=== PATIENT | male | born 1950 | race Two or more races ===

== ENCOUNTER 2024-12-04 21:10 | Emergency (ER) | payer MEDICARE, MEDICAID, SELFPAY ==
[2024-12-04 21:14] VITALS: PULSE 78; RESP 18; O2SAT 98; BMI 27.2
[2024-12-04 21:22] VITALS: BP 173/82; PULSE 82; RESP 18; TEMP 36.8; O2SAT 97
--- NOTE | 2024-12-04 21:27 | PC.NURSE ---
patient brought in by ambulance for left arm shunt bleed. per ems by the time they got there and bandaged it the bleeding looked controlled. Patient states he ripped off the bandage they put after dialysis as instructed but for some reason he bled this time. patient laying comfortably with call light at reach no other complaints at the moment.
--- NOTE | 2024-12-04 22:36 | PD.EDSKIN ---
ED Skin Abcess FB-RME/HPI General Chief complaint: Skin/Abscess/Foreign Body Stated complaint: DIALYSIS SHUNT BLEEDING Arrival date/time: 12/04/24 21:10 RME / HPI RME / HPI narrative: Dr. Ureña?s Main ED Evaluation: 74yo male with a history of HTN, DM, renal disease on HD presents to the ED for a chief complaint of bleeding from his fistula. Patient states he finished his dialysis session at 1600, reporting his fistula started bleeding after, so he was sent over for evaluation. He denies any N/V, dizziness, lightheadedness or any other associated symptoms. Related Data Home Medications ?Medication ?Instructions ?Recorded ?Confirmed atorvastatin 20 mg tablet 20 mg PO QDAY 02/22/23 01/09/24 insulin glargine 100 unit/mL (3 28 unit subcut DAILY 02/22/23 01/09/24 mL) subcutaneous pen (Basaglar KwikPen U-100 Insulin) cilostazol 50 mg tablet 50 mg PO DAILY 01/08/24 01/09/24 clonidine HCl 0.2 mg tablet 0.2 mg PO BID 01/08/24 01/09/24 finasteride 5 mg tablet 5 mg PO QDAY 01/08/24 01/09/24 hydralazine 10 mg tablet 10 mg PO TID 01/08/24 01/09/24 metoprolol succinate 50 mg 50 mg PO BID 01/08/24 01/09/24 tablet,extended release 24 hr sacubitril 24 mg-valsartan 26 mg 1 tab PO BID 01/08/24 01/09/24 tablet (Entresto) Previous Rx's ?Medication ?Instructions ?Recorded aspirin 81 mg tablet,delayed 81 mg PO QDAY #30 tabs 02/13/22 release (Almaz Low Dose Aspirin) spironolactone 25 mg tablet 25 mg PO BID #60 tabs 02/23/23 amlodipine 5 mg tablet 10 mg (2 x 5 mg) PO QDAY 1 month 02/26/23 #60 tabs levofloxacin 750 mg tablet 750 mg PO Q24H #7 tabs 06/16/24 Allergies Allergy/AdvReac Type Severity Reaction Status Date / Time metformin Allergy Severe Anaphylaxis Verified 01/09/24 06:38 Review of Systems Review of Systems Systems Reviewed: All systems reviewed, normal except as documented Narrative Review of Systems: Gen: No fever, no chills, no weight loss EYES: No discharge, no visual changes, no pain HEENT: No ear pain, no congestion, no sore throat PULM: No shortness of breath, no cough, no congestion CV: No chest pain, no dyspnea on exertion, no palpitations GI: No nausea, no vomiting, no diarrhea, no pain, no constipation : No frequency, no urgency, no dysuria Musc/skel: No joint pain, no back pain Skin: No rash. Warm and dry. + AV fistula bleeding Psyc: No hallucinations, no depression Heme/Lymph: No easy bleeding or bruising tendencies Neuro: No weakness, no headache Past Medical History Past Medical History NEUROLOGIC: Negative Neurological Disorders, Cerebrovascular Accident, Transient Ischemic Attacks (TIA), Dementia, Alzheimer's Disease, Parkinson's Disease, Brain Tumor, Meningitis, Seizures, Epilepsy, Multiple Sclerosis, Cerebral Palsy, Amyotrophic Lateral Sclerosis (ALS/Leena Gehrig's), Guillain-[place] Syndrome, Spina Bifida, Paralysis, Peripheral Neuropathy, Ojeda's Palsy, Subdural Hematoma, Migraine, Head Trauma, Spinal Cord Injury or Traumatic Brain Injury CARDIAC: Positive Cardiac Disorders, Hypercholesterolemia, Congestive Heart Failure and Hypertension; Negative Myocardial Infarction, Cardiac Arrhythmia, Atrial Fibrillation, Angina, Heart Murmur, Coronary Artery Disease, Atherosclerotic Heart Disease, Peripheral Vascular Disease, Aneurysm, Congenital Heart Disease, Valvular Heart Disease, Rheumatic Fever, Cardiomyopathy, Edema, Pericarditis, Cellulitis, Deep Vein Thrombosis, Hypotension or Varicose Veins RESPIRATORY: Negative Chronic Obstructive Pulmonary Disease (COPD), Asthma, Bronchitis, Emphysema, Pneumonia, Pulmonary Fibrosis, Cystic Fibrosis, Tuberculosis, Pulmonary Embolism, Pulmonary Edema or Sleep Apnea GASTROINTESTINAL: Negative Gastrointestinal Disorders, Hepatitis, Cirrhosis, Pancreatitis, Celiac Disease, Gall Bladder Disease, Gastrointestinal Bleed, Esophageal Varices, Sousa's Esophagus, Colitis, Ulcerative Colitis, Diverticulitis, Diverticulosis, Ulcer, Colorectal Cancer, Irritable Bowel, Crohn's Disease, Obstructive Bowel, Hiatal Hernia, Hemorrhoids, Gastroesophageal Reflux Disease or Obesity GENITOURINARY: Positive Genitourinary Disorders, Renal Disease, Dialysis and Benign Prostatic Hyperplasia; Negative Kidney Stones, Polycystic Kidney Disease, Neurogenic Bladder or Prostate Cancer REPRODUCTIVE: Negative Breast Cancer, Fibroids or Testicular Cancer MUSCULOSKELETAL: Positive Musculoskeletal Disorders, Arthritis and Gout; Negative Muscular Dystrophy, Myasthenia Gravis, Marfan's Syndrome, Bone Cancer, Rheumatoid Arthritis, Osteoporosis, Degenerative Disk Disease, Scoliosis, Carpal Tunnel Syndrome, Fibromyalgia, Fractures, Degenerative Joint Disease or Osteomyelitis ENT: Positive Cataracts; Negative Glaucoma, Blind, Retinal Detachment, Macular Degeneration, Ear Infection, Deafness, Head Trauma or Eye Prosthesis ENDOCRINE: Positive Endocrine Disorders and Diabetes Mellitus Type 2; Negative Diabetes Mellitus Type 1, Hypoglycemia, [place]'s Syndrome, Feliz's Disease, Hyperthyroidism, Hypothyroidism, Parathyroid Disease, Pituitary Disease, Systemic Lupus Erythematosus, Syndrome of Inappropriate Antidiuretic Hormone (SIADH), Adrenal Disease or Graves' Disease HEMATOLOGIC: Negative Blood Disorders, Anemia, Leukemia, Hemophilia, Thalassemia, Sickle Cell Disease or Clotting Problems PSYCHO/SOCIAL: Positive Depression and Anxiety; Negative Psychiatric Problems, Schizophrenia, Recreational Drug Use, Bipolar Disorder, Behavior Problems, Self-Mutilation, Attention Deficit Disorder, Attention Deficit Hyperactivity Disorder, Depression, Post Traumatic Stress Disorder or Eating Disorder OTHER HISTORY: Positive Hospitalization and Falls; Negative Autoimmune Disease, Down Syndrome, Autism, Developmental Delay, Shingles, Blood Transfusions, Blood Transfusion Reaction, Anesthesia Reactions, Organ Transplant, Chemotherapy, Radiation Therapy, Hyperbaric Therapy, MRSA, VRSA, Vancomycin-Resistant Enterococci, Human Immunodeficiency Virus (HIV), Chicken Pox, Measles, Mumps, Rubella (Burkinan Measles), Pertussis, Clostridium Difficile, Cancer, Breast Cancer, Cervical Cancer, Colorectal Cancer, Lung Cancer, Ovarian Cancer, Prostate Cancer or Testicular Cancer Family History FAMILY HISTORY: Positive Family Cancer; Negative Family Psychiatric Problems, Family Respiratory Disorders, Family Cardiac Disorders, Family Gastrointestinal Problems, Family Surgery or Family Anesthesia Reaction Surgical History SURGICAL: Positive Angiogram and Open Reduction Internal Fixation; Negative Cardiac Surgery, Open Heart Surgery, Coronary Artery Bypass Graft, Valve Replacement, Vascular Surgery, Coronary Stent, Cardiac Catheterization, Pacemaker, Auto Implanted Cardiovert Defib, Carotid Endarterectomy, Endocrine Surgery, Thyroidectomy, Ear Surgery, Tympanostomy Tube, Eye Surgery, Nose Surgery, Oral Surgery, Tonsillectomy, Adenoidectomy, Cochlear Implant, Corneal Transplant, Throat Surgery, Abdominal Surgery, Tracheostomy, Gastric Bypass Surgery, Gastrostomy, Bowel Surgery, Nephrectomy, Transurethral Resection, Joint Replacement, Amputation, Arthroscopy, Neurologic Surgery, Brain Shunt, Vasectomy or Organ Transplant Social History SMOKING STATUS: Never smoker SECOND HAND EXPOSURE: No ED Exam Narrative Physical exam: GENERAL APPEARANCE: alert and oriented x 4, well-developed, well-nourished, no acute distress VITALS: All vitals were reviewed and the pulse ox is 97% on room air, which is normal according to my interpretation. HEENT: normocephalic, atraumatic NECK: supple LUNGS: no respiratory distress, normal effort HEART: good peripheral perfusion ABDOMEN: non distended EXTREMITIES: atraumatic; left AV fistula with a good palpable thrill NEUROLOGIC: awake; alert and oriented x4; cranial nerves II-XII grossly intact PSYCHIATRIC: appropriate mood and affect SKIN: warm, dry, normal color; no rashes Course Course Course Narrative: Patient does not have any clinical signs of hypovolemia such as tachycardia, tachypnea, pallor or active bleeding. Patient is stable to be discharged home. Quality Measures none Vital Signs Vital signs: Vital Signs Temperature 98.2 F 12/04/24 21:22 Pulse Rate 82 12/04/24 21:22 Respiratory Rate 18 12/04/24 21:22 Blood Pressure 173/82 H 12/04/24 21:22 Pulse Oximetry (%) 97 12/04/24 21:22 Oxygen Delivery Method Room Air 12/04/24 21:22 Skin / Abscess / Foreign Body MDM Narrative MDM Narrative:: Scribe Attestation: 12/04/24 - Sanaz Verma am scribing for and in the presence of Dr. Ureña. Patient data External records reviewed:: [facility] previous records (Per chart review, patient was seen here on 06/16/24 for a fever.) Clinical information provided by:: patient and family Social determinants that could affect healthcare access:: none Patient has the following chronic illnesses:: CHF, HTN, DM, renal disease on HD How is presenting disease/condition affected by chronic disease/condition?: caused by Evaluation data The following diagnostics were reviewed and interpreted by me:: other (specify) (none) Lab and/or radiology exams considered but not ordered:: none Interpretation Summary: none Medications / Prescriptions Medications or Prescriptions considered but not ordered:: none Medication administrations:: none Consultations Consultation(s) initiated? (list below): No Diagnosis Skin/Abscess Differential Diagnosis: other (hypovolemia, hemorrhage, LUE abscess, AV fistula thrombus) Most likely diagnosis given after review of the tests above:: see below Admission Indicated Admission indicated?: not indicated Admission Request Was there a request for admission?: No Disposition Plan Disposition Plan: Discharge Discharge Attestation Discharge Attestation: The patient and all family members were given an opportunity to ask questions and understood the discharge instructions. Discharge instructions specifically effects, indications for sooner follow up or return to the emergency department, and the expected course of current diagnosis. Patient condition: Stable Discharge Plan Plan Patient Disposition: HOME (Self Care) Disposition Comment: Stable for discharge Patient condition on transfer: Stable Prescriptions/Referrals Prescriptions/Med Rec: No Action aspirin [Almaz Low Dose Aspirin] 81 mg Tablet,Delayed Release (Dr/Ec) 81 mg PO QDAY Qty: 30 0RF hydralazine 10 mg Tablet 10 mg PO TID metoprolol succinate 50 mg Tablet Extended Release 24 Hr 50 mg PO BID clonidine HCl 0.2 mg Tablet 0.2 mg PO BID finasteride 5 mg Tablet 5 mg PO QDAY Entresto 24-26 mg Tablet 1 tab PO BID cilostazol 50 mg tablet 50 mg PO DAILY Patient Comments: TOME PRANAV TABLETA DOS VECES AL D A atorvastatin 20 mg tablet 20 mg PO QDAY Patient Comments: TOME PRANAV TABLETA POR VIA ORAL AL ACOSTARSE FOR CHOLESTEROL insulin glargine [Basaglar KwikPen U-100 Insulin] 100 unit/mL (3 mL) insulin pen 28 unit SUBCUT DAILY Patient Comments: INJECT 40 UNIDADES BAJO LA PIEL TODOS LOS D PARA DIABETES spironolactone 25 mg tablet 25 mg PO BID Qty: 60 2RF amlodipine 5 mg Tablet 10 mg PO QDAY 30 Days Qty: 60 2RF levofloxacin 750 mg tablet 750 mg PO Q24H Qty: 7 0RF Referrals: Stephanie Chacko PA-C [Primary Care Provider] - In 1 week Problem List Clinical Impression: Hemorrhage of arteriovenous fistula Patient/Caregiver Discharge Instructions Discharge Activity: activity as tolerated Education Materials: First Aid: Bleeding, ED Hemodialysis Access Bleeding Additional Instructions: Please return to the emergency department for any worsening or any further medical problems Otherwise you should follow-up with your primary care doctor within the next several days as well as your toilet attendant within the next several days. If you have any further bleeding please do not hesitate to come back to the ER right away Print Language: Surinamese Stand Alone Forms: [employer] Info., Patient Portal Info Letter
[2024-12-04 22:50] VITALS: BP 189/85; PULSE 84; RESP 16; TEMP 36.8; O2SAT 96
== END 2024-12-04 22:50 | disposition home or self-care (01) ==
PROVIDERS: Emergency Provider Emergency Medicine; PCP Physician Assistant
DX: T82.838A Hemorrhage due to vascular prosthetic devices, implants and grafts, initial encounter (principal); Y82.8 Other medical devices associated with adverse incidents
CPT/HCPCS: 99283

== ENCOUNTER → 2024-12-24 | Outpatient (CLI) | payer MEDICARE, MEDICAID, SELFPAY ==
[2024-12-24 11:40] LABS: Basophils % (Auto) 0 % (0-2.5); Eosinophils # (Auto) 0.2 Thou/mm3 (0.0-0.5); Eosinophils % (Auto) 3 % (0-10); Hematocrit 27.7 % (41.0-53.0); Hemoglobin 9.3 g/dL (13.5-16.0); Immature Granulocytes % (Auto) 0 % (0-0); Immature Granulocytes Auto 0.02 Thou/mm3 (0.00-0.00); Lymphocytes # (Auto) 1.3 Thou/mm3 (1.0-4.8); Lymphocytes % (Auto) 18 % (10-50); Mean Corpuscular HGB Conc 33.6 g/dl (31.0-37.0); Mean Corpuscular Hemoglobin 30.2 pg (25.0-35.0); Mean Corpuscular Volume 90 fL (80-100); Monocytes # (Auto) 0.9 Thou/mm3 (0.0-0.8); Monocytes % (Auto) 12 % (0-12); Neutrophils # (Auto) 4.6 Thou/mm3 (1.8-7.7); Neutrophils % (Auto) 66 % (37-80); Nucleated Red Blood Cell % 0 /100 WBC (0); Platelet Count 152 Thou/mm3 (140-440); RDW Standard Deviation 43.6 fL (35.1-43.9); Red Blood Count 3.08 Miln/mm3 (4.50-5.90)
[2024-12-24 11:48] LABS: Anion Gap 8 (7-16); BUN/Creatinine Ratio 12 Ratio (12-20); Blood Urea Nitrogen 37 mg/dL (9-23); Carbon Dioxide 29.9 mMol/L (20.0-31.0); Chloride 100 mMol/L (98-107); Creatinine (Component) 3.2 mg/dL (0.6-1.3); Glucose 148 mg/dL (74-106); Osmolality,Calculated 287 (275-295); Partial Thromboplastin Time 25.6 Seconds (22.0-36.0); Potassium 5.2 mMol/L (3.4-5.1); Prothrombin Time 11.1 Seconds (9.0-12.2); Sodium 138 mMol/L (136-145); eGFR 19 See Note
== END | disposition home or self-care (01) ==
PROVIDERS: PCP Physician Assistant; Referring Provider Internal Medicine; Visit Provider Internal Medicine
DX: I25.10 Atherosclerotic heart disease of native coronary artery without angina pectoris (principal); I48.91 Unspecified atrial fibrillation
CPT/HCPCS: 36415; 80048; 85025; 85610; 85730

== ENCOUNTER 2024-12-27 16:13 | Emergency (ER) | payer MEDICARE, MEDICAID, SELFPAY ==
[2024-12-27 16:49] VITALS: BP 166/72; PULSE 93; RESP 18; TEMP 37.1; O2SAT 97
[2024-12-27 16:50] VITALS: BMI 26.9
--- NOTE | 2024-12-27 16:57 | XR_ITS ---
Examination: PA lateral chest 2 views Technique one AP lateral chest 2 views Exam date and time: December 27, 2024 1710 hrs. Indications: Coughing beginning 2 days ago. Findings: Early bibasilar pneumonia. Minor prominence left ventricle No pulmonary edema Impression: Early bibasilar pneumonia
--- NOTE | 2024-12-27 16:58 | PD.EDRME ---
Rapid Medical Screening Exam [facility] Arrival date/time: 12/27/24 16:13 74-year-old male with a history of hyperlipidemia, hypertension, type 2 diabetes presents to the emergency room with a chief complaint of coughing and intermittent fevers x 3 days. I have greeted and performed a focused initial assessment of this patient. A comprehensive ED assessment and evaluation of the patient, analysis of all test results, and completion of the medical decision making process will be conducted by additional ED providers. Chief Complaint: Flu Like Symptoms Vital signs: Vital Signs Temperature 98.7 F 12/27/24 16:49 Pulse Rate 93 12/27/24 16:49 Respiratory Rate 18 12/27/24 16:49 Blood Pressure 166/72 H 12/27/24 16:49 Pulse Oximetry (%) 97 12/27/24 16:49 Oxygen Delivery Method Room Air 12/27/24 16:49 Vital signs reviewed by provider: Yes
[2024-12-27 19:05] VITALS: BP 214/94; PULSE 80; RESP 18; TEMP 36.8; O2SAT 98
[2024-12-27 19:32] VITALS: BP 199/89; PULSE 88; RESP 17; TEMP 37.9; O2SAT 98
--- NOTE | 2024-12-27 19:36 | EDNOTE_ITS ---
<Statement entered by Ria Worley MD - 12/28/24 05:26> As co-signing physician, I was present and available for consult prn. I concur with the plan and care as documented by the midlevel provider. Upper Respiratory Inf. RME/HPI General Chief Complaint: Flu Like Symptoms Stated Complaint: COUGH AND FEVER X 2 DAYS; NO MEDS TAKEN Time Seen by Provider: 12/27/24 18:21 Source: patient Arrival date/time: 12/27/24 16:13 74-year-old male with past medical history of hyperlipidemia, hypertension, and diabetes presents emergency department complaining of cough and fevers that have been ongoing for 3 days. Patient denies any other associated symptoms. Mode of arrival: ambulatory Limitations: no limitations RME / HPI RME / HPI Narrative: 12/27/24 16:13 74-year-old male with a history of hyperlipidemia, hypertension, type 2 diabetes presents to the emergency room with a chief complaint of coughing and intermittent fevers x 3 days. I have greeted and performed a focused initial assessment of this patient. A comprehensive ED assessment and evaluation of the patient, analysis of all test results, and completion of the medical decision making process will be conducted by additional ED providers. Related Data Home Medications ?Medication ?Instructions ?Recorded ?Confirmed atorvastatin 20 mg tablet 20 mg PO QDAY 02/22/2301/08 insulin glargine 100 unit/mL (3 28 unit subcut DAILY 0 02/22/23 01/09/24 mL) subcutaneous pen (Basaglar KwikPen U-100 Insulin) cilostazol 50 mg tablet 50 mg PO DAILY 01/08/2405/27 clonidine HCl 0.2 mg tablet 0.2 mg PO BID 01/08/2405/27 finasteride 5 mg tablet 5 mg PO QDAY 01/08/24 hydralazine 10 mg tablet 10 mg PO TID 01/08/24 metoprolol succinate 50 mg 50 mg PO BID 01/08/2401/08 tablet,extended release 24 hr sacubitril 24 mg-valsartan 26 mg 1 tab PO BID 01/08/24 01/09/24 tablet (Entresto) Previous Rx's ?Medication ?Instructions ?Recorded aspirin 81 mg tablet,delayed 81 mg PO QDAY #30 tabs release (Almaz Low Dose Aspirin) spironolactone 25 mg tablet 25 mg PO BID #60 tabs 02/03 12/27 amlodipine 5 mg tablet 10 mg (2 x 5 mg) PO QDAY 1 m onth 02/26/23 #60 tabs levofloxacin 750 mg tablet 750 mg PO Q24H #7 tabs 06/04 01/25 amoxicillin 875 mg tablet 875 mg PO BID 7 days #14 tab s 12/27/24 azithromycin 250 mg tablet See Rx Instructions PO .COM PLEX #6 12/27/24 tabs Allergies Allergy/AdvReac Type Severity Reaction Status Date / Time metformin Allergy Severe Anaphylaxis Verified 12/27/24 16:16 Review of Systems Review of Systems Systems Reviewed: All systems reviewed, normal except as documented Constitutional Constitutional: Reports system reviewed and no additional complaints, except as documented, Denies body ache(s), Denies chills and Reports fever(s) Eyes Eyes: Reports system reviewed and no additional complaints, except as documented and Denies change in vision ENT Ears, Nose, Mouth, and Throat: Reports system reviewed and no additional complaints, except as documented, Denies disequilibrium, Denies dizziness, Denies sore throat and Denies vertigo Cardiovascular Cardiovascular: Reports system reviewed and no additional complaints, except as documented, Denies chest pain and Denies dyspnea Respiratory Respiratory: Reports system reviewed and no additional complaints, except as documented, Denies chest congestion, Reports cough and Denies dyspnea Gastrointestinal Gastrointestinal: Reports system reviewed and no additional complaints, except as documented, Denies abdominal pain, Denies nausea and Denies vomiting Musculoskeletal Musculoskeletal: Reports system reviewed and no additional complaints, except as documented, Denies abnormal gait and Denies arthralgias Integumentary/Breasts Skin/Breast: Reports system reviewed and no additional complaints, except as documented, Denies erythema, Denies rash and Denies wounds Neurologic Neurologic: Reports system reviewed and no additional complaints, except as documented, Denies abnormal gait, Denies disequilibrium, Denies dizziness and Denies vertigo Past Medical History Past Medical History NEUROLOGIC: Negative Neurological Disorders, Cerebrovascular Accident, Transient Ischemic Attacks (TIA), Dementia, Alzheimer's Disease, Parkinson's Disease, Brain Tumor, Meningitis, Seizures, Epilepsy, Multiple Sclerosis, Cerebral Palsy, Amyotrophic Lateral Sclerosis (ALS/Leena Gehrig's), Guillain-Sutton Syndrome, Spina Bifida, Paralysis, Peripheral Neuropathy, Ojeda's Palsy, Subdural Hematoma, Migraine, Head Trauma, Spinal Cord Injury or Traumatic Brain Injury CARDIAC: Positive Cardiac Disorders, Hypercholesterolemia, Congestive Heart Failure and Hypertension; Negative Myocardial Infarction, Cardiac Arrhythmia, Atrial Fibrillation, Angina, Heart Murmur, Coronary Artery Disease, Atherosclerotic Heart Disease, Peripheral Vascular Disease, Aneurysm, Congenital Heart Disease, Valvular Heart Disease, Rheumatic Fever, Cardiomyopathy, Edema, Pericarditis, Cellulitis, Deep Vein Thrombosis, Hypotension or Varicose Veins RESPIRATORY: Negative Chronic Obstructive Pulmonary Disease (COPD), Asthma, Bronchitis, Emphysema, Pneumonia, Pulmonary Fibrosis, Cystic Fibrosis, Tuberculosis, Pulmonary Embolism, Pulmonary Edema or Sleep Apnea GASTROINTESTINAL: Negative Gastrointestinal Disorders, Hepatitis, Cirrhosis, Pancreatitis, Celiac Disease, Gall Bladder Disease, Gastrointestinal Bleed, Esophageal Varices, Sousa's Esophagus, Colitis, Ulcerative Colitis, Diverticulitis, Diverticulosis, Ulcer, Colorectal Cancer, Irritable Bowel, Crohn's Disease, Obstructive Bowel, Hiatal Hernia, Hemorrhoids, Gastroesophageal Reflux Disease or Obesity GENITOURINARY: Positive Genitourinary Disorders, Renal Disease, Dialysis and Benign Prostatic Hyperplasia; Negative Kidney Stones, Polycystic Kidney Disease, Neurogenic Bladder or Prostate Cancer REPRODUCTIVE: Negative Breast Cancer, Fibroids or Testicular Cancer MUSCULOSKELETAL: Positive Musculoskeletal Disorders, Arthritis and Gout; Negative Muscular Dystrophy, Myasthenia Gravis, Marfan's Syndrome, Bone Cancer, Rheumatoid Arthritis, Osteoporosis, Degenerative Disk Disease, Scoliosis, Carpal Tunnel Syndrome, Fibromyalgia, Fractures, Degenerative Joint Disease or Osteomyelitis ENT: Positive Cataracts; Negative Glaucoma, Blind, Retinal Detachment, Macular Degeneration, Ear Infection, Deafness, Head Trauma or Eye Prosthesis ENDOCRINE: Positive Endocrine Disorders and Diabetes Mellitus Type 2; Negative Diabetes Mellitus Type 1, Hypoglycemia, [place]'s Syndrome, Feliz's Disease, Hyperthyroidism, Hypothyroidism, Parathyroid Disease, Pituitary Disease, Systemic Lupus Erythematosus, Syndrome of Inappropriate Antidiuretic Hormone (SIADH), Adrenal Disease or Graves' Disease HEMATOLOGIC: Negative Blood Disorders, Anemia, Leukemia, Hemophilia, Thalassemia , Sickle Cell Disease or Clotting Problems PSYCHO/SOCIAL: Positive Depression and Anxiety; Negative Psychiatric Problems, Schizophrenia, Recreational Drug Use, Bipolar Disorder, Behavior Problems, Self-Mutilation, Attention Deficit Disorder, Attention Deficit Hyperactivity Disorder, Depression, Post Traumatic Stress Disorder or Eating Disorder OTHER HISTORY: Positive Hospitalization and Falls; Negative Autoimmune Disease, Down Syndrome, Autism, Developmental Delay, Shingles, Blood Transfusions, Blood Transfusion Reaction, Anesthesia Reactions, Organ Transplant, Chemotherapy, Radiation Therapy, Hyperbaric Therapy, MRSA, VRSA, Vancomycin-Resistant Enterococci, Human Immunodeficiency Virus (HIV), Chicken Pox, Measles, Mumps, Rubella (Martiniquais Measles), Pertussis, Clostridium Difficile, Cancer, Breast Cancer, Cervical Cancer, Colorectal Cancer, Lung Cancer, Ovarian Cancer, Prostate Cancer or Testicular Cancer Family History FAMILY HISTORY: Positive Family Cancer; Negative Family Psychiatric Problems, Family Respiratory Disorders, Family Cardiac Disorders, Family Gastrointestinal Problems, Family Surgery or Family Anesthesia Reaction Surgical History SURGICAL: Positive Angiogram and Open Reduction Internal Fixation; Negative Cardiac Surgery, Open Heart Surgery, Coronary Artery Bypass Graft, Valve Replacement, Vascular Surgery, Coronary Stent, Cardiac Catheterization, Pacemaker, Auto Implanted Cardiovert Defib, Carotid Endarterectomy, Endocrine Surgery, Thyroidectomy, Ear Surgery, Tympanostomy Tube, Eye Surgery, Nose Surgery, Oral Surgery, Tonsillectomy, Adenoidectomy, Cochlear Implant, Corneal Transplant, Throat Surgery, Abdominal Surgery, Tracheostomy, Gastric Bypass Surgery, Gastrostomy, Bowel Surgery, Nephrectomy, Transurethral Resection, Joint Replacement, Amputation, Arthroscopy, Neurologic Surgery, Brain Shunt, Vasectomy or Organ Transplant Social History SMOKING STATUS: Never smoker SECOND HAND EXPOSURE: No ED Exam General Limitations: Present no limitations General appearance: Present alert and in no apparent distress Head Head exam: Present atraumatic Eye Eye exam: Present normal appearance, PERRL and EOMI ENT ENT exam: Present normal exam, normal oropharynx and mucous membranes moist Neck Neck exam: Present normal inspection, full ROM and trachea midline Chest Chest inspection: Present normal inspection and symmetric chest wall rise Respiratory Respiratory exam: Present normal lung sounds bilaterally Cardiovascular Cardiovascular exam: Present regular rate, normal rhythm and normal heart sounds Abdominal Exam Abdominal exam: Present soft and normal bowel sounds Extremities Exam Extremities exam: Present normal inspection and full ROM Back Exam Back exam: Present normal inspection and full ROM Neurological Exam Neurological exam: Present alert, oriented X3 and CN II-XII intact Psychiatric Psychiatric exam: Present normal affect and normal mood Skin Skin exam: Present warm, dry, intact and normal color Course Quality Measures none Orders Category Date Time Status Bedside COVID-19 Antigen Test NOW Care 12/27/24 16:57 Completed Bedside Influenza A&B Antigen Test NOW Care 12/27/24 16:57 Completed XR chest 2V Stat Exams 12/27/24 16:57 Completed cefTRIAXone [Rocephin] 1,000 mg Med 12/27/24 19:37 Discontinued Lidocaine 1% 20 ml [Xylocaine 1% 20 ML] 2.1 ml IM X1 Vital Signs Vital signs: Vital Signs Temperature 98.7 F 12/27/24 16:49 Pulse Rate 93 12/27/24 16:49 Respiratory Rate 18 12/27/24 16:49 Blood Pressure 166/72 H 12/27/24 16:49 Pulse Oximetry (%) 97 12/27/24 16:49 Oxygen Delivery Method Room Air 12/27/24 16:49 97% room air within normal limits Upper Respiratory Infection MDM Narrative MDM Narrative:: 74-year-old male with past medical history of hyperlipidemia, hypertension, and diabetes presents emergency department complaining of cough and fevers that have been ongoing for 3 days. Patient denies any other associated symptoms. Patient appears nontoxic and is hemodynamically stable. Chest x-ray impression early bibasilar pneumonia we will treat with antibiotics with dual therapy due to comorbidities. Patient given IM Rocephin and discharged on oral antibiotics. Patient data External records reviewed:: [facility] previous records Clinical information provided by:: patient Social determinants that could affect healthcare access:: none Patient has the following chronic illnesses:: See chart How is presenting disease/condition affected by chronic disease/condition?: no chronic disease Evaluation data The following diagnostics were reviewed and interpreted by me:: radiology exam(s) Lab and/or radiology exams considered but not ordered:: Ordered Interpretation Summary: Interpreted by me Medications / Prescriptions Medications or Prescriptions considered but not ordered:: Ordered Medication administrations:: Medication Administration History Discontinued Medications Ceftriaxone Sodium 1,000 mg/ (Lidocaine HCl 2.1 ml) 0 mg IM X1 ONE Stop: 12/27/24 19:38 Last Admin: 12/27/24 20:07 Dose: 2.1 mg Documented By: SE Comments: Given Consultations Consultation(s) initiated? (list below): No Diagnosis Upper Respiratory Differential Diagnosis: upper respiratory infection, otitis media, sinusitis, viral infection, bronchitis, influenza and pharyngitis Most likely diagnosis given after review of the tests above:: Pneumonia Admission Indicated Admission indicated?: not indicated Admission Request Was there a request for admission?: No Disposition Plan Disposition Plan: Discharge Discharge Attestation Discharge Attestation: The patient and all family members were given an opportunity to ask questions and understood the discharge instructions. Discharge instructions specifically effects, indications for sooner follow up or return to the emergency department, and the expected course of current diagnosis. Patient condition: Stable Discharge Plan Plan Patient Disposition: HOME (Self Care) Disposition Comment: Stable Prescriptions/Referrals Prescriptions/Med Rec: New azithromycin 250 mg tablet See Rx Instructions .ROUTE .COMPLEX Qty: 6 0RF Rx Instructions: For 250 mg dose pack: take 500 mg today (day 1), then 250 mg for 4 days (days 2-5) amoxicillin 875 mg tablet 875 mg PO BID 7 Days Qty: 14 0RF No Action aspirin [Almaz Low Dose Aspirin] 81 mg Tablet,Delayed Release (Dr/Ec) 81 mg PO QDAY Qty: 30 0RF hydralazine 10 mg Tablet 10 mg PO TID metoprolol succinate 50 mg Tablet Extended Release 24 Hr 50 mg PO BID clonidine HCl 0.2 mg Tablet 0.2 mg PO BID finasteride 5 mg Tablet 5 mg PO QDAY Entresto 24-26 mg Tablet 1 tab PO BID cilostazol 50 mg tablet 50 mg PO DAILY Patient Comments: TOME PRANAV TABLETA DOS VECES AL D A atorvastatin 20 mg tablet 20 mg PO QDAY Patient Comments: TOME PRANAV TABLETA POR VIA ORAL AL ACOSTARSE FOR CHOLESTEROL insulin glargine [Basaglar KwikPen U-100 Insulin] 100 unit/mL (3 mL) insulin pen 28 unit SUBCUT DAILY Patient Comments: INJECT 40 UNIDADES BAJO LA PIEL TODOS LOS D PARA DIABETES spironolactone 25 mg tablet 25 mg PO BID Qty: 60 2RF amlodipine 5 mg Tablet 10 mg PO QDAY 30 Days Qty: 60 2RF levofloxacin 750 mg tablet 750 mg PO Q24H Qty: 7 0RF Referrals: Stephanie Chacko PA-C [Primary Care Provider] - In 1 week Problem List Clinical Impression: Pneumonia Patient/Caregiver Discharge Instructions Discharge Activity: activity as tolerated Education Materials: ED Pneumonia (Adult) Additional Instructions: Drink plenty of fluids and stay hydrated. Take Tylenol or ibuprofen as needed for fever or pain. Take antibiotics as prescribed. Follow-up with primary care provider 2 to 3 days. Return to emergency department for any worsening symptoms or as needed. Print Language: Japanese Stand Alone Forms: [employer] Award Info., Patient Portal Info Letter PA/ARCHEOLOGIST CLASSICAL Supervising Physician PA/ARCHEOLOGIST CLASSICAL Supervising Physician: Dr. Worley
[2024-12-27] MEDS: cefTRIAXone 1,000 MG, LIDOCAINE 1% 20 ML 2.1 ML IM (20:07)
== END 2024-12-27 20:18 | disposition home or self-care (01) ==
PROVIDERS: Emergency Provider Emergency Medicine; PCP Physician Assistant
DX: J18.9 Pneumonia, unspecified organism (principal)
CPT/HCPCS: 71046; 87400; 87811; 96372; 99283; J0696; J3490